=== PATIENT | male | born 1965 | race Caucasian/White ===

== ENCOUNTER → 2017-02-13 | Day surgery (SDC) | payer OTHER ==
[~2017-02-13] VITALS: Ht 180.3 cm; Wt 108.9 kg
[~2017-02-13] MED LIST: CITA40TA13 PO; LISI10TA PO; Lactated Ringer's 1,000 ML IV SCH; MetoCLOpramide 5 mg/mL 2 mL Inj IVPUSH PRN; Ondansetron 2 mg/mL 2 mL Inj IVPUSH PRN; Propofol 10,000 mCg/mL 20 mL Inj ONE; RES15 PO; SIMV80TA4 PO; TRAZ-118 PO; ZOLP10TA5 PO
[2017-02-13 08:12] VITALS: BP 131/80; PULSE 69; RESP 17; O2SAT 98
--- NOTE | 2017-02-13 08:22 | PCM.HPANE ---
Patient Data Surgeon Admitting Provider: Attending Provider:Martin Ho MD Primary Care Physician:Bob Hubbard MD Other Provider:Vicky Henaoingham Anesthesia Reason for Visit Colon Ca Screening Ht/WT & BMI Height (Feet): 5 Height (Inches): 11 Weight (Kilograms): 108.86 Body Mass Index 33.00 Allergies Coded Allergies: No Known Drug Allergies (Verified Allergy, Unknown, 02/09/17) Past Anesthesia History Anesthesia History: Denies:: Anesthesia Reactions, Fam Malignant Hypertherm Diabetes History Hx Diabetes?: No MRSA MRSA: No Medications Hypertension Medication: Yes Home Meds Incl Beta Elham: No Reported Medications Zolpidem 10 Mg [id number] Mg PO HS PRN For Insomnia Ref 0 02/09/17 Trazodone 100 Mg [id number] Mg PO HS Ref 0 02/09/17 Temazepam 15 Mg [id number] Mg PO HS PRN For Insomnia 30 Days Ref 0 02/09/17 Simvastatin 80 Mg [id number] Mg PO HS 30 Days Ref 0 02/09/17 Lisinopril 10 Mg [id number] Mg PO DAILY 30 Days Ref 0 02/09/17 Citalopram 40 Mg [id number] Mg PO DAILY 30 Days Ref 0 02/09/17 History History of ENT Problems?: No HEENT History: Denies:: Hearing Problem Denture Type: None Teeth Condition: Within Normal Limits Hx of Heart Problems?: Yes Cardiovascular History: Positive for:: Hypertension Denies:: AICD Abdominal Aortic Aneurism Atrial Fibrillation Cardiac Surgery Chest Pain Congestive Heart Failure Coronary Artery Disease Edema Heart Murmur Irregular Heartbeat Pacemaker Peripheral Vascular Rheumatic Fever Thrombophlebitis Valvular Heart Disease Hx of Respiratory Problem?: No Respiratory History: Denies:: Asthma COPD Chest Surgery Cough Dyspnea Emphysema Hemoptysis Oxygen Administration Pneumonia Pulmonary Embolism Tuberculosis Use of C-PAP Machine Use of Inhalers / NEBS Hx Neurologic Problems?: No Neurological History: Denies:: CVA Hx of GI Problems?: Yes Gastrointestinal History: Positive for:: Heartburn Hx of Problems?: No Hx Musculoskeletal Problems?: No Musculoskeletal History: Denies:: Fibromyalgia Joint Replacement Psycho Social History: Positive for:: Anxiety Hx Depression Hx Surgeries?: Yes (back cyct surgeries) Hx Any Other Health Problems?: Yes Hx Diabetes: No Hx Alcohol Use: No Stop/Bang Treated for Sleep Apnea?: Yes Do You Have a CPAP Machine?: Yes MARANDA Risk Assessment: High Risk, =/>3 Yes Risk Assessment Category Category 1A: Patient has history of documented sleep apnea, and HAS NOT received any narcotic, sedative or anesthesia administration during this stay. Category 1B: Patient has history of documented sleep apnea, and HAS received any narcotic , sedative or anesthesia administration during this stay Category 2: Patient has SUSPECTED Obstructive Sleep Apnea, and HAS received any narcotic , sedative or anesthesia administration during this stay. Category 3: Patient has SUSPECTED Obstructive Sleep Apnea and HAS NOT received narcotic, sedative or anesthesia administration during this stay. Category 4: Outpatient in Procedural Areas with known sleep apnea or who screen positive for High Risk via the STOP/BANG questionnaire. Exam Exam Vital Signs Vital Signs Date Time Temp Pulse Resp B/P Pulse Ox O2 Delivery O2 Flow Rate FiO2 02/13/17 08:12 37 69 17 131/80 98 Room Air General Appearance: Oriented X3 HEENT/AIRWAY: MP 3 Lungs: Normal Air Movement Heart: Regular Rate/Rhythm Plan Impression Patient chart reviewed, patient interviewed and anesthestic plan with risks, benefits, and alternatives discussed, and informed consent obtained. ASA Physical Status: ASA2 Mod Systemic Disease Anesthetic Plan: MAC Bene/Risks/Altern/Consents: Yes HP Complete Prior to Induction: Yes Darius Smith MD Feb 13, 2017 08:22
[2017-02-13 09:32] VITALS: BP 85/55; PULSE 69; RESP 14; O2SAT 92
--- NOTE | 2017-02-13 09:43 | ENDO ---
[address] [address] ENDOSCOPY PROCEDURE PATIENT: FAUSTINA JEAN : 1965 MR#: [id number] ADMIT: 02/13/2017 JOB ID: [id number] TYPE OF OPERATION: Colonoscopy. PREOPERATIVE DIAGNOSIS(ES): Colorectal cancer screening. POSTOPERATIVE DIAGNOSIS(ES): Normal colonoscopy. ANESTHESIA: Monitored anesthesia care. COMPLICATIONS: None. BLOOD LOSS: Minimal. DESCRIPTION OF PROCEDURE: After risks and benefits were explained to the patient, informed was obtained. After anesthesia administered, colonoscope was inserted per rectum to the cecum. Mucosa was carefully examined. Prep of the patient was fair. After the procedure was done, the scope was withdrawn and the procedure terminated. FINDINGS: Upon inspection of the anus, no masses, hemorrhoids, ulcers, fissures that were seen. Throughout the entire examination, no polyps, masses or lesions. Retroflexion was normal. IMPRESSION: Normal colonoscopy. RECOMMENDATIONS: Repeat colonoscopy in 10 years for colorectal cancer screening.
[2017-02-13 09:47] VITALS: BP 120/78; PULSE 64; RESP 16; O2SAT 96
--- NOTE | 2017-02-13 09:59 | PCM.ANEP1 ---
Post Anesthesia PACU Phase 1 Assessment Vital Signs Vital Signs Date Time Temp Pulse Resp B/P Pulse Ox O2 Delivery O2 Flow Rate FiO2 02/13/17 09:47 64 16 120/78 96 Room Air 02/13/17 09:32 69 14 85/55 92 Room Air 02/13/17 08:12 37 69 17 131/80 98 Room Air Anesthetic Administered: MAC Level of Alertness: Awake, talking Pain: No Nausea or Vomiting: No CV Function & Hydration Stable: Yes Airway Device: Lungs: Normal Air Movement PACU Phase 2 Assessment Patient Instructions Provided: N/A Darius Smith MD Feb 13, 2017 09:59
== END | disposition home or self-care (01) ==
LOC: END 00:33
PROVIDERS: ATTEND Internal Medicine Gastroenterology
DX: Z12.11 Encounter for screening for malignant neoplasm of colon (principal); K59.00 Constipation, unspecified; I10 Essential (primary) hypertension; E78.5 Hyperlipidemia, unspecified; F43.10 Post-traumatic stress disorder, unspecified; F41.8 Other specified anxiety disorders; M54.89 Other dorsalgia; G47.33 Obstructive sleep apnea (adult) (pediatric); Z79.891 Long term (current) use of opiate analgesic
CPT/HCPCS: G0121; J2704; J7120